=== PATIENT | male | born 1985 | race Two or more races ===

== ENCOUNTER 2020-05-10 22:35 | Emergency (ER) | payer OTHER ==
[~2020-05-10] VITALS: Ht 175.3 cm; Wt 91.0 kg
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
[2020-05-11] MEDS ORDERED: HYDROcodone/APAP 5/325MG 1 TAB TABLET PO ONE (01:00)
[2020-05-11 02:43] VITALS: BP 115/62
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
== END 2020-05-11 02:43 | disposition home or self-care (01) ==
LOC: ER 22:35
DX: Z04.1 Encounter for examination and observation following transport accident (principal); R47.81 Slurred speech; R51 Headache; M54.2 Cervicalgia; M54.5 Low back pain; R07.89 Other chest pain
CPT/HCPCS: 70450; 71045; 72100; 72125; 99285-25